=== PATIENT | female | born 1930 | race American Indian/Alaskan Native ===

== ENCOUNTER 2019-02-12 11:52 | Outpatient (CLI) | payer MEDICARE | END 2019-02-12 11:53 | disposition home or self-care (01) | LOC: ECHO 11:52 | PROVIDERS: ATTEND Internal Medicine Cardiovascular Disease | DX: I11.9 Hypertensive heart disease without heart failure (principal); J45.909 Unspecified asthma, uncomplicated | CPT/HCPCS: 93306 ==

== ENCOUNTER 2019-10-29 10:06 | Outpatient (CLI) | payer MEDICARE ==
[2019-10-29 11:55] LABS: Hematocrit 40.9 % (30.3-42.9); Hemoglobin 13.4 gm/dl (10.1-14.3); Mean Corpuscular HGB Conc 33 % (30-34); Mean Corpuscular Volume 81 fl (79-97); Platelet Count 377 K/mm3 (140-440); Red Blood Count 5.08 M/mm3 (3.65-5.03); Red Cell Distribution Width 16.4 % (13.2-15.2)
[2019-10-29 12:07] LABS: ABG Base Excess 0.1 mmol/L (-2.0-3.0); ABG HCO3 23.8 mmol/L (20.0-26.0); ABG Methemoglobin 0.5 % (0.0-1.5); ABG Oxygen Saturation 95.8 % (95.0-99.0); ABG PCO2 35.4 mm Hg; ABG PH 7.445 pH Units (7.350-7.450); ABG PO2 73.7 mm Hg (80.0-90.0)
[2019-10-29 12:21] LABS: Albumin 4.5 g/dL (3.9-5); Calcium 9.9 mg/dL (8.4-10.2); Chol/HDL Ratio 3.24 %
--- NOTE | 2019-10-29 12:24 | XRay Report ---
CHEST 2 VIEWS INDICATION: J45.909 Unspecified asthma, uncomplicated/I10 HTN/J30.2Other seas. COMPARISON: Chest x-ray from 08/01/2015 FINDINGS: Support devices: None. Heart: Within normal limits. Lungs/pleura: No acute air space or interstitial disease. Lungs do appear mildly hyperinflated. No pn eumothorax. Additional findings: None. IMPRESSION: 1. No acute findings. Signer Name: Robe Huizar MD Signed: 10/29/2019 12:20 PM Workstation Name: [id number]
--- NOTE | 2019-10-29 12:26 | XRay Report ---
ABDOMEN 6 VIEW(S) INDICATION / CLINICAL INFORMATION: GERD AND REFLUX. COMPARISON: None available. FINDINGS: TUBES / LINES: None. BOWEL GAS PATTERN: No significant abnormality. FREE AIR / EXTRALUMINAL GAS: None seen. ADDITIONAL FINDINGS: The patient attempted upper GI but was unable to tolerate the exam and the exam was immediately aborted. The exam was essentially nondiagnostic IMPRESSION: 1. Aborted upper GI. 2. No acute abnormality seen in the abdomen on the KUB. Signer Name: Robe Huizar MD Signed: 10/29/2019 12:21 PM Workstation Name: [id number]
== END 2019-10-29 10:07 | disposition home or self-care (01) ==
LOC: FLUORO 10:06
PROVIDERS: ATTEND Internal Medicine
DX: K21.9 Gastro-esophageal reflux disease without esophagitis (principal); J45.909 Unspecified asthma, uncomplicated; E78.00 Pure hypercholesterolemia, unspecified; I10 Essential (primary) hypertension; J30.2 Other seasonal allergic rhinitis; Z53.8 Procedure and treatment not carried out for other reasons
CPT/HCPCS: 36415; 36600; 71046; 74018; 80053; 80061; 82785; 82803; 84436; 84443; 85027